=== PATIENT | male | born 1960 | race Caucasian/White ===

== ENCOUNTER 2021-09-13 12:17 | Inpatient (IN) | payer OTHER, SELFPAY ==
[2021-09-13 13:13] LABS: #Eosinphils 0.1 thou/uL (0.0-0.7); #Lymphocytes 0.9 thou/uL (1.20-3.40); #Monocytes 0.8 thou/uL (0.11-0.59); #Neutrophils 7.6 thou/uL (1.40-6.50); %Basophils 0.2 % (0.0-1.0); %Eosinophils 0.9 % (0.0-10.0); %Lymphocytes 9.8 % (21.0-51.0); %Monocytes 8.4 % (0.0-10.0); %Neutrophils 80.7 % (42.0-75.0); Hemoglobin 12.9 g/dL (14.0-18.0); Mean Corpuscular HGB CONC 31.6 g/dL (32.0-36.0); Mean Corpuscular Hemoglobin 27.8 pg (27.0-31.0); Mean Corpuscular Volume 87.9 fL (78.0-98.0); Mean Platelet Volume 8.5 fL (7.4-10.4); Platelet Count 239 thou/uL (130-400); RBC Distribution Width 14.3 % (11.5-14.5); Red Blood Cell (RBC) Count 4.62 mill/uL (4.70-6.10); White Blood Cell (WBC) Count 9.4 thou/uL (4.8-10.8)
[2021-09-13 13:15] LABS: INR-International Normal Ratio 1.1; Prothrombin Time 14.2 sec (12.0-14.7)
[2021-09-13 13:16] LABS: PTT 37.8 sec (22.9-36.1)
[2021-09-13 13:18] LABS: D-Dimer Test 0.75 *mcg/mL (0.27-0.43)
[2021-09-13 13:24] LABS: ALT (SGPT) 8 U/L (8-55); AST (SGOT) 23 U/L (5-34); Albumin 3.6 g/dL (3.5-5.0); Alkaline Phosphatase 72 U/L (40-110); Anion Gap 14 mmol/L (10-20); BUN (Urea Nitrogen) 17 mg/dL (8.4-25.7); Bilirubin, Total 0.9 mg/dL (0.2-1.2); Calc. Creatinine Clearance 0 mL/min (70-130); Calcium 9.1 mg/dL (7.8-10.44); Carbon Dioxide 30 mmol/L (22-29); Chloride 102 mmol/L (98-107); Glucose 105 mg/dL (70-105); Potassium 4.9 mmol/L (3.5-5.1); Protein, Total 6.6 g/dL (6.0-8.3); Sodium 141 mmol/L (136-145)
[2021-09-13 13:28] LABS: Troponin I Less than 0.010 ng/mL (< 0.028)
[2021-09-13] MEDS ORDERED: Morphine 4 MG/ML VIAL ONE ×2 (14:37→20:39)
[2021-09-13] MEDS ORDERED: Acetaminophen 500 MG TAB ONE (14:48)
[2021-09-13 15:46] LABS: Bacteria/HPF None Seen HPF (None Seen); Bilirubin Negative (Negative); Blood, Urine Negative (Negative); Clarity Clear (Clear); Glucose, Urine (Dipstick) Normal (Negative); Ketone, Urine 80 mg/dL (Negative); Leukocyte Negative Leu/uL (Negative); Nitrite Negative (Negative); Protein, Urine (Dipstick) Negative (Neg-Trace); RBC/HPF 0-3 HPF (0-3); Specific Gravity, Urine 1.025 (1.002-1.036); Squamous Epithelial 0-3 HPF (0-3); WBC/HPF 0-3 HPF (0-3)
[2021-09-14] MEDS ORDERED: Ondansetron PF 4 MG/2 ML Vial ONE (00:29)
[2021-09-14 01:22] LABS: Troponin I Less than 0.010 ng/mL (< 0.028)
[2021-09-14] MEDS ORDERED: Ondansetron ODT 4 MG TAB SL PRN (02:30)
[2021-09-14] MEDS ORDERED: Ondansetron PF 4 MG/2 ML Vial IVP PRN (02:30)
[2021-09-14] MEDS ORDERED: Sodium Chloride 0.9% 1,000 ML IV SCH (02:30)
[2021-09-14] MEDS ORDERED: Pregabalin 75 MG CAP PO SCH (02:45)
[2021-09-14] MEDS ORDERED: Gabapentin 300 MG CAP PO SCH (03:00)
[2021-09-14] MEDS ORDERED: VANCOMYCIN IVPB PRN (03:38)
[2021-09-14] MEDS ORDERED: VANCOMYCIN 2 GRAM/400 ML BAG 2 GM in Premix Bag 1 BAG IVPB SCH (05:00)
[2021-09-14 05:30] LABS: Troponin I Less than 0.010 ng/mL (< 0.028)
[2021-09-14] MEDS ORDERED: Senokot S 8.6-50 MG TAB PO PRN (07:00)
[2021-09-14] MEDS ORDERED: GUAIFENESIN SF SOLN 200 MG/10 ML UDCUP PO PRN (07:00)
[2021-09-14] MEDS ORDERED: Bisacodyl 5 MG TAB PO PRN (07:00)
[2021-09-14] MEDS ORDERED: Cepastat Lozenges 1 LOZ PO PRN (07:00)
[2021-09-14] MEDS ORDERED: Calcium Carbonate 500 MG ChewTAB PO PRN (07:00)
[2021-09-14] MEDS ORDERED: hydrALAZINE 20 MG/ML VIAL SLOW IVP PRN (07:00)
[2021-09-14] MEDS ORDERED: Artificial Tear Sol 15 ML BOT EA EYE PRN (07:00)
[2021-09-14] MEDS ORDERED: Loperamide HCl 2 MG CAP PO PRN (07:00)
[2021-09-14] MEDS ORDERED: Loratadine 10 MG TAB PO PRN (07:00)
[2021-09-14] MEDS ORDERED: Sodium Chloride 0.65% Nasal 44 ML BOT EA NARE PRN (07:00)
[2021-09-14] MEDS ORDERED: Hydrocerin (Eucerin) Cream 120 gm Jar TOP PRN (07:00)
[2021-09-14] MEDS ORDERED: FLU VACC QS2021-22(6MOS UP)/PF 60 MCG/0.5 ML SYRINGE IM ONE (09:00)
[2021-09-14] MEDS: Gabapentin 300 MG CAP PO SCH ×3 (09:52→21:21)
[2021-09-14] MEDS: Pregabalin 75 MG CAP PO SCH ×2 (09:53→21:16)
[2021-09-14 11:21] LABS: SARS-CoV-2 PCR by NAA Not Detected (NotDetected)
[2021-09-14] MEDS: HYDROcodone/Acetaminophen 5/325 mg Tablet PO PRN ×2 (14:51→21:17)
[2021-09-15 06:01] LABS: ALT (SGPT) 7 U/L (8-55); AST (SGOT) 22 U/L (5-34); Albumin 3.6 g/dL (3.5-5.0); Alkaline Phosphatase 67 U/L (40-110); Anion Gap 14 mmol/L (10-20); BUN (Urea Nitrogen) 14 mg/dL (8.4-25.7); Bilirubin, Total 0.6 mg/dL (0.2-1.2); Calc. Creatinine Clearance 233 mL/min (70-130); Carbon Dioxide 25 mmol/L (22-29); Cardiac Risk 2.6 (Less than 4.5); Chloride 104 mmol/L (98-107); Cholesterol 150 mg/dl (< 200 Desired); Globulin 3.7 g/dL (2.4-3.5); Glucose 101 mg/dL (70-105); HDL Cholesterol 58 mg/dL (>60 Neg Risk); LDL Cholesterol, Calculated 80 mg/dL; Magnesium 2.1 mg/dL (1.6-2.6); Potassium 4.6 mmol/L (3.5-5.1); Protein, Total 7.3 g/dL (6.0-8.3); Sodium 138 mmol/L (136-145); Triglycerides 62 mg/dL (Less than 150)
[2021-09-15] MEDS: Gabapentin 300 MG CAP PO SCH ×3 (08:12→21:39)
[2021-09-15] MEDS: Pregabalin 75 MG CAP PO SCH ×2 (08:12→21:40)
[2021-09-15] MEDS: HYDROcodone/Acetaminophen 5/325 mg Tablet PO PRN ×3 (08:13→21:56)
[2021-09-15] MEDS: Ketorolac Tromethamine 30 MG/ML VIAL IVP PRN ×2 (09:01→17:52)
[2021-09-15 09:26] LABS: #Eosinphils 0.1 thou/uL (0.0-0.7); #Monocytes 0.6 thou/uL (0.11-0.59); #Neutrophils 4.7 thou/uL (1.40-6.50); %Basophils 0.4 % (0.0-1.0); %Eosinophils 1.9 % (0.0-10.0); %Lymphocytes 15.6 % (21.0-51.0); %Monocytes 9.1 % (0.0-10.0); Hemoglobin 12.1 g/dL (14.0-18.0); Mean Corpuscular HGB CONC 31.5 g/dL (32.0-36.0); Mean Corpuscular Hemoglobin 28.1 pg (27.0-31.0); Mean Corpuscular Volume 89.3 fL (78.0-98.0); Platelet Count 231 thou/uL (130-400); RBC Distribution Width 14.4 % (11.5-14.5); Red Blood Cell (RBC) Count 4.31 mill/uL (4.70-6.10); White Blood Cell (WBC) Count 6.5 thou/uL (4.8-10.8)
[2021-09-15 09:49] LABS: Phosphorus 2.7 mg/dL (2.3-4.7)
[2021-09-15 13:10] VITALS: BMI 67.1
[2021-09-15] MEDS: VANCOMYCIN 2 GRAM/400 ML BAG 2 GM in Premix Bag 1 BAG IVPB SCH (15:04)
[2021-09-15] MEDS: Ondansetron ODT 4 MG TAB SL PRN (15:08)
[2021-09-16] MEDS: VANCOMYCIN 2 GRAM/400 ML BAG 2 GM in Premix Bag 1 BAG IVPB SCH ×2 (02:29→13:09)
[2021-09-16] MEDS: Gabapentin 300 MG CAP PO SCH ×2 (09:02→15:21)
[2021-09-16] MEDS: HYDROcodone/Acetaminophen 5/325 mg Tablet PO PRN (09:02)
[2021-09-16] MEDS: Pregabalin 75 MG CAP PO SCH (09:02)
[2021-09-16] MEDS: Ondansetron ODT 4 MG TAB SL PRN (09:07)
[2021-09-16] MEDS ORDERED: methylPREDNISolone Sod Succ 40 MG VIAL IVP SCH (10:30)
[2021-09-16] MEDS ORDERED: Promethazine HCl 12.5 MG in Sodium Chloride 0.9% 50 ML IVPB SCH (10:30)
[2021-09-16] MEDS ORDERED: Morphine 4 MG/ML VIAL SLOW IVP SCH (10:30)
[2021-09-16] MEDS ORDERED: Senokot S 8.6-50 MG TAB PO SCH (10:33)
[2021-09-16] MEDS: Ketorolac Tromethamine 30 MG/ML VIAL IVP PRN (14:32)
[2021-09-16 15:42] VITALS: BP 116/68; TEMP 98.5
[2021-09-16] MEDS ORDERED: Fioricet 325/50/40 mg Tablet PO PRN (17:34)
== END 2021-09-16 19:49 | disposition home or self-care (01) | DRG 312 ==
LOC: ERS 12:17 → 2NO 09-14 00:34
PROVIDERS: ADMIT Student in an Organized Health Care Education/Training Program; ATTEND Family Medicine
DX: R55 Syncope and collapse (principal); L03.115 Cellulitis of right lower limb; G61.81 Chronic inflammatory demyelinating polyneuritis; Z68.44 Body mass index [BMI] 60.0-69.9, adult; I48.91 Unspecified atrial fibrillation; Z20.822 Contact with and (suspected) exposure to COVID-19; F32.A Depression, unspecified; G62.9 Polyneuropathy, unspecified; E66.01 Morbid (severe) obesity due to excess calories; G43.909 Migraine, unspecified, not intractable, without status migrainosus; Z79.01 Long term (current) use of anticoagulants; Z79.899 Other long term (current) drug therapy; Z99.3 Dependence on wheelchair
CPT/HCPCS: 36415; 71045; 80053; 80061; 81001; 83735; 83880; 84100; 84146; 84484; 85025; 85379; 85610; 85730; 93005; 93306; 93880; J1885; J2270; J2405; J2550; J2920; J3370; J7050; Q0162; U0003; U0005